=== PATIENT | female | born 1990 | race Caucasian/White ===

== ENCOUNTER 2020-01-30 10:35 | Outpatient (CLI) | payer OTHER, SELFPAY ==
--- NOTE | 2020-01-30 | ECG_ITS ---
Measurements Intervals [place] Rate: 86 P: 78 KS: 159 QRS: 58 QRSD: 90 T: 70 QT: 361 QTc: 433 Interpretive Statements SINUS RHYTHM EARLY PRECORDIAL R/S TRANSITION BASELINE ARTIFACT- I, III, AVL, AVF BORDERLINE ECG Electronically Signed On 01-30-2020 11:27:54 CDT by Frank Steve D.O.
== END 2020-01-30 10:36 | disposition home or self-care (01) ==
LOC: ANHCARD 10:45
DX: R94.31 Abnormal electrocardiogram [ECG] [EKG] (principal)
CPT/HCPCS: 93005

== ENCOUNTER → 2021-08-16 02:09 | Outpatient (CLI) | payer OTHER, SELFPAY ==
[2021-08-16 20:49] LABS: SARS-CoV-2 RNA PCR Positive
== END ==
PROVIDERS: PCP Registered Nurse; Visit Provider Registered Nurse
DX: U07.1 COVID-19 (principal)
CPT/HCPCS: C9803; U0003; U0005

== ENCOUNTER 2022-11-29 01:51 | Day surgery (SDC) | payer OTHER, SELFPAY ==
[2022-10-29 12:29] VITALS: BMI 21.9
--- NOTE | 2022-10-29 12:34 | PC.NURSE ---
Addendum entered by Peggy Adams RN 11/21/22 14:36: PT TO ARRIVE AT 0600 ON 11/29/22 FOR SURGERY AT 0730. Original Note: Report to the Outpatient Waiting Room, entrance under the green pavilion located off [facility], at time 0600 on date 11/07/22. Planned Procedure Time: 0730. Time changes happen often and if your time is changed the preop area will call you the afternoon before. - You and your visitor will be asked to self-screen and do not enter if you have any COVID symptoms. - Only one visitor is requested with a max of two and NO children visitors are allowed at this time. - The patient visitor may be requested to leave or wait in car when not with patient due to distancing restrictions. - A mask is optional within the hospital at this time. Patients may have clear liquids (water, carbonated beverages, clear teas, apple juice) until 3 hours prior to surgery with a maximum of 20 ounces. - No food from midnight until time of surgery Take the following medications with a SIP of water the morning of surgery: IF NEEDED - TYLENOL/CODEINE, LORAZEPAM DO NOT STOP ANY OF YOUR OTHER PRESCRIPTION MEDICATIONS PRIOR TO SURGERY EXCEPT THE FOLLOWING Medications to discontinue per physician: N/A Date to take last dose: N/A Please no make-up, nail arabic, hairspray, perfume, deodorant, or body powder the day of surgery. No jewelry (including any body piercings) or valuables the day of surgery, leave them at home. Please take a shower or bath the night before, or the morning of, surgery with an antibacterial soap. Wear comfortable, loose fitting clothing. - Jewelry must be removed prior to entering the operating room. Rings and piercings that are not removed may be cut off. - The hospital will not accept responsibility for valuables. - Please leave all valuables, including medications, at home the day of surgery. If you are going home after surgery, a licensed fork truck driver must drive you home. - NO public transportation without another adult if you receive anesthesia. - We recommend that an adult stay with you for 24 hours following discharge. - We also recommend that you do not drive, make important decision, drink alcoholic beverages, or take any drugs that were not prescribed by your health care provider for at least 24 hours after your discharge time. Follow any additional instructions given to you from your surgeon. If you or anyone in your household have experienced Covid symptoms in the past week, please notify your surgeon or the nurse liaison at the phone number below for possible testing. Telephone instructions given to MASON COLLAZO and asked if any additional questions and then verbalized understanding. Patient advised to call surgeon office or pre surgery nurse liaison [phone] if any additional questions.
--- NOTE | 2022-11-21 14:34 | PC.NURSE ---
Pt tested positive for Covid 11/04 - symptoms have since resolved. No other changes in medications or health history since initial interview. New pre-op instructions reviewed with pt. Pt denies further questions at this time.
--- NOTE | 2022-11-28 14:26 | WPDANESEPPF ---
Anes - Initial Pre Proc Eval Procedure: Operation Date: 11/29/22 07:30 Proposed Procedures p Loop Electrical Excision Procedure - Dami Barber MD s Laparoscopic Bilateral Salpingectomy - Dami Barber MD Date/Time: 11/28/22 14:26 Surgeon: Dami Barber MD Pre Op Diagnosis: [id number], desires sterilization Patient Data Age: 32 Gender: F Height: 1.57 m Weight: 54.45 kg Allergies Allergy/AdvReac Type Severity Reaction Status Date / Time clarithromycin Allergy Unknown Other Verified 11/29/22 06:52 tramadol Allergy Unknown Vomiting Verified 11/29/22 06:52 Home Medications Medication Instructions Recorded Confirmed Type acetaminophen 300 mg-codeine 60 mg 1 tablet PO TID PRN Pain 06/06/20 11/29/22 History tablet lorazepam 1 mg tablet (Ativan) 1 mg PO BID PRN Anxiety 06/06/20 11/29/22 History methocarbamol 500 mg tablet 500 mg PO Q6H PRN Pain 06/06/20 11/29/22 History hydrocodone 5 mg-acetaminophen 325 1 tablet PO Q4H PRN pain #12 tabs 11/29/22 Rx mg tablet levonorgestrel-ethinyl estradiol 1 tablet PO DAILY #84 tabs 12/03/22 Rx 0.1 mg-20 mcg tablet Results Review: All pre-operative results and documents have been reviewed as part of the pre-operative evaluation. 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 History of Obsessive compulsive disorder Vaginal delivery x 2 Family History Family History Father Family history of diabetes mellitus in first degree relative Family history of coronary artery disease, Onset Age: 38 Patient's father is Diabetes mellitus Grandparent Family history of coronary artery disease, Onset Age: 60 Diabetes mellitus Other Family history of malignant neoplasm of brain Social History Social History Smoking packs per day: 0.5 Smoking cigarettes per day: 10.0 Years smoked: 16 Smoking pack-years: 8.00 Smoking status: Current every day smoker Tobacco type: cigarettes and e-cigarettes/vaping Second hand tobacco smoke exposure: No Smoking end date: 08/12/17 Additional smoking assessment comments: NOW VAPING Alcohol intake: never Substance use: current Substance use type: marijuana Lack of Transportation: No Lack of Food: Never True Current Housing: I Have Housing Concerned About Future Housing: No Difficulty Paying Gas/Electric Bills: No Difficulty Paying for Meds: No Currently Unemployed: No Education: Associate Degree Living arrangements: with family Additional living arrangements comments: CHILDREN Spiritual care concerns: No Anes - Eval Final PreProcedure Day of Procedure 11/28/22 14:26 Patient weight: normal Heart: regular rate and rhythm Lungs: clear to auscultation Airway: Mallampati scale class II Neurological: alert and oriented Last oral intake: >/= 8 hours Emergent: no Anesthetic plan: proceed Results Review: All pre-operative results and documents have been reviewed as part of the pre-operative evaluation. Informed Consent: The patient's anesthetic plan and its attendant risks and benefits were discussed with the patient/family/POA. Questions were solicited and answers provided to the satisfaction of the patient/family/POA.
[2022-11-29] VITALS (8 sets, daily range): BP systolic 98–123; BP diastolic 57–86; PULSE 58–97; RESP 12–17; TEMP 36.3–36.9; O2SAT 100
--- NOTE | 2022-11-29 06:42 | WPDANESEPPF ---
Anes - Initial Pre Proc Eval Procedure: Operation Date: 11/29/22 07:30 Proposed Procedures p Loop Electrical Excision Procedure - Dami Barber MD s Laparoscopic Bilateral Salpingectomy - Dami Barber MD Date/Time: 11/29/22 06:42 Surgeon: Dami Barber MD Pre Op Diagnosis: hsil-cin1, desires sterilization Patient Data Age: 32 Gender: F Height: 1.57 m Weight: 54.45 kg Allergies Allergy/AdvReac Type Severity Reaction Status Date / Time clarithromycin Allergy Unknown Other Verified 11/21/22 14:34 tramadol Allergy Unknown Vomiting Verified 11/21/22 14:34 Home Medications Medication Instructions Recorded Confirmed Type acetaminophen 300 mg-codeine 60 mg 1 tablet PO TID PRN Pain 06/06/20 11/21/22 History tablet lorazepam 1 mg tablet (Ativan) 1 mg PO BID PRN Anxiety 06/06/20 11/21/22 History methocarbamol 500 mg tablet 500 mg PO Q6H PRN Pain 06/06/20 11/21/22 History levonorgestrel-ethinyl estradiol 1 tablet PO DAILY #84 tabs 05/11/22 11/21/22 Rx 0.1 mg-20 mcg tablet Patient hx anesthesia problems: none Family hx anesthesia problems: none Results Review: All pre-operative results and documents have been reviewed as part of the pre-operative evaluation. 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 History of Obsessive compulsive disorder Vaginal delivery x 2 Family History Family History Father Family history of diabetes mellitus in first degree relative Family history of coronary artery disease, Onset Age: 38 Patient's father is Diabetes mellitus Grandparent Family history of coronary artery disease, Onset Age: 60 Diabetes mellitus Other Family history of malignant neoplasm of brain Social History Social History Smoking packs per day: 0.5 Smoking cigarettes per day: 10.0 Years smoked: 16 Smoking pack-years: 8.00 Smoking status: Current every day smoker Tobacco type: cigarettes and e-cigarettes/vaping Second hand tobacco smoke exposure: No Smoking end date: 08/12/17 Additional smoking assessment comments: NOW VAPING Alcohol intake: never Substance use: current Substance use type: marijuana Lack of Transportation: No Lack of Food: Never True Current Housing: I Have Housing Concerned About Future Housing: No Difficulty Paying Gas/Electric Bills: No Difficulty Paying for Meds: No Currently Unemployed: No Education: Associate Degree Living arrangements: with family Additional living arrangements comments: CHILDREN Spiritual care concerns: No Anes - Eval Final PreProcedure Day of Procedure 11/29/22 06:42 Patient weight: normal Heart: regular rate and rhythm Lungs: clear to auscultation Airway: Mallampati scale class II Neurological: alert and oriented Last oral intake: >/= 8 hours ASA classification: II Emergent: no Anesthetic plan: proceed Anesthesia type and monitoring: general ETT and standard monitoring Results Review: All pre-operative results and documents have been reviewed as part of the pre-operative evaluation. Informed Consent: The patient's anesthetic plan and its attendant risks and benefits were discussed with the patient/family/POA. Questions were solicited and answers provided to the satisfaction of the patient/family/POA.
[2022-11-29] MEDS: LACTATED RINGERS 1,000 ML 30 ML IV CONT ×2 (06:45→08:33)
[2022-11-29] MEDS: KETOROLAC 15 MG/ML VIAL (*BKC) IV PUSH (06:45)
[2022-11-29] MEDS: ACETAMINOPHEN 500 MG TABLET 1000 MG PO (06:45)
--- NOTE | 2022-11-29 07:07 | PM.IMHP ---
H&P: [facility] History of Present Illness Date/Time: 11/29/22 07:07 Chief Complaint: Abnormal pap smear and permanent sterilization Narrative: She is here today for LEEP procedure due to having an HGSIL pap smear and the cervical biopsies were CIN1. Concern for higher grade lesion. She also has satisfied parity and requests permanent sterilization. Declines all other nonpermanent forms of contraception. Review of Systems Review of Systems: All systems reviewed & are unremarkable except as noted in HPI and below Constitutional: Constitutional: Reports no additional constitutional complaints Eyes: Eyes: Reports no additional eye complaints Cardiovascular: Cardiovascular: Reports no additional cardiovascular complaints Respiratory: Respiratory: Reports no additional respiratory complaints Gastrointestinal: Gastrointestinal: Reports no additional gastrointestinal complaints Genitourinary: Genitourinary: Reports no additional female genitourinary complaints and Reports as per HPI Integumentary/Breasts: Skin/Breast: Reports system reviewed and no additional complaints, except as docu Neurologic: Reports system reviewed and no additional complaints, except as documented Psychiatric: Psychiatric: Reports no additional psychiatric complaints Hematologic/Lymphatic: Hematologic/Lymphatic: Reports no additional hematologic/lymphatic complaints [facility] Past Medical History Medical History 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 History of Obsessive compulsive disorder Vaginal delivery x 2 Family History Family History Father Family history of diabetes mellitus in first degree relative Family history of coronary artery disease, Onset Age: 38 Patient's father is Diabetes mellitus Grandparent Family history of coronary artery disease, Onset Age: 60 Diabetes mellitus Other Family history of malignant neoplasm of brain Social History Social History Smoking packs per day: 0.5 Smoking cigarettes per day: 10.0 Years smoked: 16 Smoking pack-years: 8.00 Smoking status: Current every day smoker Tobacco type: cigarettes and e-cigarettes/vaping Second hand tobacco smoke exposure: No Smoking end date: 08/12/17 Additional smoking assessment comments: NOW VAPING Alcohol intake: never Substance use: current Substance use type: marijuana Lack of Transportation: No Lack of Food: Never True Current Housing: I Have Housing Concerned About Future Housing: No Difficulty Paying Gas/Electric Bills: No Difficulty Paying for Meds: No Currently Unemployed: No Education: Associate Degree Living arrangements: with family Additional living arrangements comments: CHILDREN Spiritual care concerns: No Meds Home Medications and Allergies Home Medications Medication Instructions Recorded Confirmed Type acetaminophen 300 mg-codeine 60 mg 1 tablet PO TID PRN Pain 06/06/20 11/29/22 History tablet lorazepam 1 mg tablet (Ativan) 1 mg PO BID PRN Anxiety 06/06/20 11/29/22 History methocarbamol 500 mg tablet 500 mg PO Q6H PRN Pain 06/06/20 11/29/22 History levonorgestrel-ethinyl estradiol 1 tablet PO DAILY #84 tabs 05/11/22 11/29/22 Rx 0.1 mg-20 mcg tablet Allergies Allergy/AdvReac Type Severity Reaction Status Date / Time clarithromycin Allergy Unknown Other Verified 11/29/22 06:52 tramadol Allergy Unknown Vomiting Verified 11/29/22 06:52 Vital Signs Vital Signs - 24 hr 11/29/22 06:45 Temperature 98.4 F Pulse Rate 97 Respiratory Rate 16 Blood Pressure 123/74 Pulse Oximetry 100 Oxygen Delivery Room Air Exam Const: General: comfortable and no acute distress Orientation/consciousness: oriented to person, oriented to place and oriented to time Eyes
--- NOTE | 2022-11-29 07:11 | WPDHPUPDATE1 ---
History and Physical Update Update Date/Time: 11/29/22 07:11 History and Physical has been reviewed, including an updated exam of the patient. There are NO changes in the patient's condition. Risks, benefits, and alternatives have been discussed and questions answered. Patient agrees to proceed with procedure.
[2022-11-29] MEDS: LIDO 1%/EPINEPHRINE 1:100,000 50 ML VIAL 10 ML INFILTRATE (07:57)
[2022-11-29] MEDS: BUPivacaine HCL 0.5% PF 30 ML VIAL INFILTRATE (07:58)
--- NOTE | 2022-11-29 08:37 | PM.OP ---
Procedure Note - Brief Procedure Note - Brief Date of procedure: 11/29/22 hsil-cin1, desires sterilization Post-op diagnosis: Same Procedure performed: Loop electrosurgical excision procedure Laparoscopic bilateral salpingectomy Surgeon: Dami Barber MD Anesthesia: GETA Estimated blood loss (mL): 5 Drains: No Packing: No Pathology: Yes (1. Right and left fallopian tubes 2. Ectocervix excision 3. Endocervix excision) Complications: No immediate complications Condition: Stable Disposition: PACU
--- NOTE | 2022-11-29 08:39 | W.PM.PROC2 ---
Procedure Note - Detailed Date of Procedure 11/29/22 Pre-op Diagnosis hsil-cin1, desires sterilization Post-op Diagnosis Same Procedure Performed 1. Loop electrosurgical excision procedure 2. Laparoscopic bilateral salpingectomy Surgeon Dami Barber MD Anesthesia General Indications undesired fertility desires permanent sterilization 1. 2. High-grade squamous intraepithelial lesion on Pap smear subsequent cervical biopsies were TAYLOR 1 due to the discrepancy LEEP recommended. Findings Normal fallopian tubes and ovaries normal pelvis. There was hypopigmentation at 1-2 o'clock. Description of Procedure The patient was taken to the OR where adequate IV sedation was administered. She was then prepped and draped in the usual sterile fashion and placed in the dorsal lithotomy position. A Graves speculum was placed in the vagina. Lugol?s solution was painted along the entire cervix and vaginal wall. Areas of non-uptake were noted to be around the entire squamocolumnar junction. 6 cc of lidocaine with epinephrine was injected at surgical site. The large loop electrode was used to remove the anterior or top portion of the cervix and a separate posterior specimen which included all of the hypopigmented area was excised and sent to pathology. The smallest loop electrode was used to obtain a top hat for excision of the endocervix. The bed of the excised cervical tissue along the cervix was cauterized using the roller ball. Hemostasis was noted. All instruments were removed from vagina at this point. The patient tolerated the procedure well without complication and was taken to the recovery room in stable condition. After informed consent was obtained patient was taken to the operating room and general endotracheal anesthesia was administered. She was placed in low lithotomy need prep prepped sterile fashion. Attention was turned to the vagina speculum inserted single-tooth tenaculum placed on anterior lip of the cervix. [place] uterine manipulator placed into the cervical canal. The speculum was removed. Attention was then turned to the abdomen. With sterile gloves a vertical incision was made at the umbilicus and a Veress needle was inserted into the abdomen confirmation into the abdomen obtained with free flow of fluid and normal peritoneal pressures. A pneumoperitoneum of 15 mm per mercury was obtained. The 5 mm port was inserted under laparoscopic visualization. Patient was placed in Trendelenburg position. Attention was turned to the left side of the abdomen and a 5 mm port was inserted under laparoscopic visualization. The pelvic organs were visualized. Attention was turned to the right side of the abdomen and another 5 mm port was inserted under laparoscopic visualization. Using the LigaSure the right fallopian tube was excised to near the entrance to the uterus. This was removed through the port. Attention was then turned to the left fallopian tube which was grabbed at the distal end and cauterized from the mesial salpinx to within a cm of the entrance to the entrance to the uterus. The fallopian tube was removed through the 5 mm port. Hemostasis was noted at both sites. Patient was taken out of Trendelenburg position the pneumoperitoneum was released and the skin incisions were closed in a subcuticular fashion with 4 O Vicryl. Estimated Blood Loss 5 Drains No Packing No Pathology Yes ( 1. And left fallopian tube 2. ectocervix past 3. Endocervix) Complications No immediate complications Disposition PACU [facility] Billing Surgery - Charge Forward: Surgery Billing
[2022-11-29] MEDS: oxyCODONE HCL (*CRX) 5 MG TAB IR PO (09:42)
== END 2022-11-29 10:23 | disposition home or self-care (01) ==
PROVIDERS: PCP Registered Nurse; Visit Provider Obstetrics & Gynecology
PROC: 0UBC7ZZ Excision of Cervix, Via Natural or Artificial Opening (ICD-10-PCS; CPT 57522; principal; 2022-11-29 07:30)
PROC: (CPT 49320; 2022-11-29 07:30)
DX: N87.0 Mild cervical dysplasia (principal); Z30.2 Encounter for sterilization; N83.8 Other noninflammatory disorders of ovary, fallopian tube and broad ligament; F42.8 Other obsessive-compulsive disorder; F17.290 Nicotine dependence, other tobacco product, uncomplicated; F12.90 Cannabis use, unspecified, uncomplicated
CPT/HCPCS: 58661; 57522; 88302; 88307; 88342; A9270; J1100; J1170; J1885; J2250; J2405; J2704; J3010; J7030; J7120